=== PATIENT | male | born 1995 | race Hispanic/Latino ===

== ENCOUNTER 2021-02-25 22:38 | Emergency (ER) | payer OTHER, SELFPAY ==
[2021-02-26 00:51] LABS: Absolute Lymphocytes (CBC) 2.4 K/uL (0.7-4.9); Basophils % 0.8 % (0-1.3); Hematocrit 41.1 % (39.6-49.0); MPV 11.8 fL (7.6-11.3); RBC Red Blood Cell Count 4.66 M/uL (4.33-5.43)
[2021-02-26 00:52] LABS: Urine Blood Negative (Negative); Urine Glucose Negative (Negative); Urine Protein Negative (Negative); Urine Specific Gravity 1.015 (1.005-1.030); Urine pH 5.5 (5.0-7.0)
[2021-02-26 00:54] LABS: Protime INR 1.26
[2021-02-26] MEDS ORDERED: LORazepam 2 MG/ML VIAL ONE (00:56)
[2021-02-26] MEDS ORDERED: NA CHLORIDE 0.9% 1,000 ML ONE (00:56)
[2021-02-26 01:06] LABS: ALT/SGPT 31 U/L (12-78); AST/SGOT 24 U/L (15-37); Albumin 4.1 g/dL (3.4-5.0); Alkaline Phosphatase 83 U/L (45-117); BUN Blood Urea Nitrogen 30 mg/dL (7-18); Bicarbonate 26 mmol/L (21-32); Bilirubin Direct 0.1 mg/dL (0-0.2); Bilirubin Total 0.3 mg/dL (0.2-1.0); Creatine Phosphokinase 430 U/L (39-308); Glucose Level 143 mg/dL (74-106); Potassium 3.4 mmol/L (3.5-5.1); Protein, Total 7.6 g/dL (6.4-8.2); Sodium Level 137 mmol/L (136-145); Troponin (Emerg Dept Use Only) < 0.02 ng/mL (0.0-0.045)
[2021-02-26 01:36] LABS: Barbiturates NEGATIVE (NEGATIVE); Benzodiazepines NEGATIVE (NEGATIVE); Cocaine NEGATIVE (NEGATIVE); METHAMPHETAM NEGATIVE (NEGATIVE); Methadone NEGATIVE (NEGATIVE); Opiates NEGATIVE (NEGATIVE); Phencyclidine NEGATIVE (NEGATIVE); THC Cannibis POSITIVE (NEGATIVE)
--- NOTE | 2021-02-26 04:20 | ER ---
Nurse's Notes [facility] Name: Richie Chance Jr Age: 25 yrs Sex: Male : 1995 Arrival Date: 02/25/2021 Time: 22:50 Bed 6 Private MD: Diagnosis: Cannabis abuse with intoxication Presentation: 02/25 22:59 Chief complaint: Friend and/or Co-Worker states: he took 2 pieces of edible candy, they rr5 don't know what is in it. may be THC. now is having chest pain and feels like his heartbeat really fast. Coronavirus screen: Client denies travel out of the [place] in the last 14 days. At this time, the client does not indicate any symptoms associated with coronavirus-19. Ebola Screen: Patient negative for fever greater than or equal to 101.5 degrees Fahrenheit, and additional compatible Ebola Virus Disease symptoms Patient denies exposure to infectious person. Patient denies travel to an Ebola-affected area in the 21 days before illness onset. Initial Sepsis Screen: Does the patient meet any 2 criteria? No. Patient's initial sepsis screen is negative. Does the patient have a suspected source of infection? No. Patient's initial sepsis screen is negative. Risk Assessment: Do you want to hurt yourself or someone else? Patient reports no desire to harm self or others. Onset of symptoms was February 25, 2021 at 21:00. 22:59 Method Of Arrival: Ambulatory rr5 22:59 Acuity: LAINEY 2 rr5 Historical: - Allergies: 23:02 No Known Allergies; rr5 - Home Meds: 23:02 None [Active]; rr5 - PMHx: 23:02 None; rr5 - PSHx: 23:02 None; rr5 - Immunization history:: Adult Immunizations unknown. - Social history:: Smoking status: unknown Patient/guardian denies using alcohol, street drugs. Screenin/20 00:15 Abuse screen: Denies threats or abuse. Nutritional screening: No deficits noted. jb4 Tuberculosis screening: No symptoms or risk factors identified. Fall Risk None identified. Assessment: 00:15 General: Appears in no apparent distress. comfortable, Behavior is calm, cooperative, jb4 appropriate for age. Pain: Denies pain. Neuro: Level of Consciousness is awake, alert, obeys commands, Oriented to person, place, time, situation. Cardiovascular: Patient's skin is warm and dry. Respiratory: Airway is patent Respiratory effort is even, unlabored, Respiratory pattern is regular, symmetrical. GI: No signs and/or symptoms were reported involving the gastrointestinal system. : No signs and/or symptoms were reported regarding the genitourinary system. EENT: No signs and/or symptoms were reported regarding the EENT system. Derm: Skin is intact, Skin is pink, warm \T\ dry. Musculoskeletal: Circulation, motion, and sensation intact. Range of motion: intact in all extremities. 01:15 Reassessment: pt is resting in bed with eyes closed, respirations are even and jb4 unlabored with no s/s of pain or distress noted. 02:15 Reassessment: Patient appears in no apparent distress at this time. No changes from jb4 previously documented assessment. Patient and/or family updated on plan of care and expected duration. Pain level reassessed. 03:00 Reassessment: Patient appears in no apparent distress at this time. Patient and/or jb4 family updated on plan of care and expected duration. Pain level reassessed. Patient is alert, oriented x 3, equal unlabored respirations, skin warm/dry/pink. Patient states feeling better. Patient states symptoms have improved. 04:30 Reassessment: Patient appears in no apparent distress at this time. Patient and/or jb4 family updated on plan of care and expected duration. Pain level reassessed. Patient is alert, oriented x 3, equal unlabored respirations, skin warm/dry/pink. Vital Signs: 02/25 22:59 BP 140 / 79; Pulse 133; Resp 24; Temp 97; Pulse Ox 100% ; Weight 88.45 kg; Height 5 ft. rr5 11 in. (180.34 cm); Pain 0/10; 02/26 01:30 BP 138 / 78; Pulse 96; Resp 17; Pulse Ox 99% on R/A; jb4 02:15 BP 127 / 66; Pulse 94; Resp 17; Pulse Ox 99% on R/A; lp1 03:00 BP 126 / 64; Pulse 99; Resp 16; Pulse Ox 100% on R/A; jb4 04:30 BP 128 / 71; Pulse 92; Resp 16; Pulse Ox 100% ; jb4 02/25 22:59 Body Mass Index 27.20 (88.45 kg, 180.34 cm) rr5 ED Course: 02/25 22:50 Patient arrived in ED. am4 23:02 Triage completed. rr5 23:02 Arm band placed on. rr5 23:56 Jamie Benitez MD is Attending Physician. [facility] 02/26 00:13 Loyda Stanley, RN is Primary Nurse. lp1 00:15 Patient has correct armband on for positive identification. Bed in low position. Call jb4 light in reach. Side rails up X 1. Pulse ox on. NIBP on. 00:20 Initial lab(s) drawn, by ar, sent to lab. Inserted saline lock: 18 gauge in right jb4 antecubital area, using aseptic technique. 00:58 Chest Single View XRAY In Process Unspecified. EDMS 02:14 Victor Manuel Monreal, RN is Primary Nurse. jb4 04:30 No provider procedures requiring assistance completed. IV discontinued, intact, jb4 bleeding controlled, No redness/swelling at site. Pressure dressing applied. Administered Medications: 00:45 Drug: NS 0.9% 1000 ml Route: IV; Rate: 1000 ml; Site: right forearm; lp1 00:45 Drug: Ativan (LORazepam) 1 mg Route: IVP; Site: right forearm; lp1 Outcome: 04:20 Discharge ordered by . [facility] 04:30 Discharged to home ambulatory, with friend. jb4 04:30 Condition: stable 04:30 Discharge instructions given to patient, Instructed on discharge instructions, follow up and referral plans. Demonstrated understanding of instructions, follow-up care. 04:44 Patient left the ED. jb4 Signatures: Dispatcher [employer] EDGA Loyda Stanley, RN RN lp1 Victor Maneul Monreal, RN KAMILA jb4 James Pagan RN RN rr5 Jamie Benitez MD MD [facility]
--- NOTE | 2021-02-26 04:20 | EDPHYS ---
Physician Documentation [facility] Name: Richie Chance Jr Age: 25 yrs Sex: Male : 1995 Arrival Date: 02/25/2021 Time: 22:50 Bed 6 Private MD: ED Physician Jamie Benitez HPI: 02/26 00:48 This 25 yrs old Male presents to ER via Ambulatory with complaints of mh7 INGESTION. 00:49 The patient presents to the emergency department with a possible poisoning, marijuana mh7 edibles. Context: Method: the patient has a confirmed or suspected ingestion, THC edibles, Time: today, Extent: marijuana edibles, the OD/poisoning occurred at at home, and was witnessed by a friend, Psychiatric history: none, Previous OD/poisoning history: none. Associated signs and symptoms: Pertinent positives: anxiety, palpitations, Pertinent negatives: apnea, auditory hallucinations, burning of skin, decreased level of consciousness, depression, diaphoresis, diarrhea, dizziness, incontinence, loss of consciousness, nausea, shortness of breath, tearfulness, visual hallucinations, vomiting. Severity of symptoms: At their worst the symptoms were moderate today, in the emergency department the symptoms are unchanged. Historical: - Allergies: 02/25 23:02 No Known Allergies; rr5 - Home Meds: 23:02 None [Active]; rr5 - PMHx: 23:02 None; rr5 - PSHx: 23:02 None; rr5 - Immunization history:: Adult Immunizations unknown. - Social history:: Smoking status: unknown Patient/guardian denies using alcohol, street drugs. ROS: 02/26 00:49 Constitutional: Negative for fever, chills, and weight loss, Eyes: Negative for injury, mh7 pain, redness, and discharge, ENT: Negative for injury, pain, and discharge, Neck: Negative for injury, pain, and swelling, Respiratory: Negative for shortness of breath, cough, wheezing, and pleuritic chest pain, Abdomen/GI: Negative for abdominal pain, nausea, vomiting, diarrhea, and constipation, Back: Negative for injury and pain, : Negative for injury, bleeding, discharge, and swelling, MS/Extremity: Negative for injury and deformity, Skin: Negative for injury, rash, and discoloration, Neuro: Negative for headache, weakness, numbness, tingling, and seizure. Allergy/Immunology: Negative for hives, rash, and allergies, Endocrine: Negative for neck swelling, polydipsia, polyuria, polyphagia, and marked weight changes, Hematologic/Lymphatic: Negative for swollen nodes, abnormal bleeding, and unusual bruising. Psych: Negative for depression, alcohol dependence, auditory hallucinations, visual hallucinations, homicidal ideation, insomnia, suicide gesture, suicidal ideation. Exam: 00:49 Head/Face: Normocephalic, atraumatic. Eyes: Pupils equal round and reactive to light, mh7 extra-ocular motions intact. Lids and lashes normal. Conjunctiva and sclera are non-icteric and not injected. Cornea within normal limits. Periorbital areas with no swelling, redness, or edema. Neck: Trachea midline, no thyromegaly or masses palpated, and no cervical lymphadenopathy. Supple, full range of motion without nuchal rigidity, or vertebral point tenderness. No Meningismus. Chest/axilla: Normal chest wall appearance and motion. Nontender with no deformity. No lesions are appreciated. 00:49 Respiratory: Lungs have equal breath sounds bilaterally, clear to auscultation and percussion. No rales, rhonchi or wheezes noted. No increased work of breathing, no retractions or nasal flaring. Abdomen/GI: Soft, non-tender, with normal bowel sounds. No distension or tympany. No guarding or rebound. No evidence of tenderness throughout. Back: No spinal tenderness. No costovertebral tenderness. Full range of motion. Skin: Warm, dry with normal turgor. Normal color with no rashes, no lesions, and no evidence of cellulitis. MS/ Extremity: Pulses equal, no cyanosis. Neurovascular intact. Full, normal range of motion. Neuro: Awake and alert, GCS 15, oriented to person, place, time, and situation. Cranial nerves II-XII grossly intact. Motor strength 5/5 in all extremities. Sensory grossly intact. Cerebellar exam normal. Normal gait. 00:49 Constitutional: The patient appears in no acute distress, alert, awake, anxious. 00:49 Cardiovascular: Rate: tachycardic, Rhythm: regular, Pulses: no pulse deficits are appreciated, Heart sounds: normal, normal S1and S2, Edema: is not appreciated, JVD: is not appreciated. 00:49 Psych: Behavior/mood is anxious, Oriented to person, place, time, Patient has no thoughts/intents to harm self or others. Judgement / Insight is normal. Memory is normal. Delusions/hallucinations are not present. Vital Signs: 02/25 22:59 BP 140 / 79; Pulse 133; Resp 24; Temp 97; Pulse Ox 100% ; Weight 88.45 kg; Height 5 ft. rr5 11 in. (180.34 cm); Pain 0/10; 02/26 01:30 BP 138 / 78; Pulse 96; Resp 17; Pulse Ox 99% on R/A; jb4 02:15 BP 127 / 66; Pulse 94; Resp 17; Pulse Ox 99% on R/A; lp1 03:00 BP 126 / 64; Pulse 99; Resp 16; Pulse Ox 100% on R/A; jb4 04:30 BP 128 / 71; Pulse 92; Resp 16; Pulse Ox 100% ; jb4 02/25 22:59 Body Mass Index 27.20 (88.45 kg, 180.34 cm) rr5 MDM: 04:18 Differential diagnosis: Ingestion/exposure to Cannabis polypharmacy, hypoglycemia. Data [facility] reviewed: vital signs, nurses notes, lab test result(s), CBC, electrolytes, urinalysis, urine drug screen, EKG, radiologic studies. Data interpreted: Pulse oximetry: on room air is 100 %. Interpretation: normal. Counseling: I had a detailed discussion with the patient and/or guardian regarding: the historical points, exam findings, and any diagnostic results supporting the discharge/admit diagnosis, lab results, radiology results, the need for outpatient follow up, to return to the emergency department if symptoms worsen or persist or if there are any questions or concerns that arise at home. Response to treatment: the patient's symptoms have resolved after treatment, the patient's blood pressure is in an acceptable range, mental status has returned to baseline, the patient no longer shows bradycardia, the patient is not short of breath, the patient is not tachycardic, the patient's pain is gone, the patient's temperature has normalized. 04:20 Patient medically screened. [facility] 02/26 00:11 Order name: Acetaminophen [facility] 02/26 00:11 Order name: Basic Metabolic Panel [facility] 02/26 00:11 Order name: CBC with Diff [facility] 02/26 00:11 Order name: ETOH Level; Complete Time: 02:19 7 02/26 00:11 Order name: Hepatic Function; Complete Time: 02:19 7 02/26 00:11 Order name: PT-INR; Complete Time: 02:19 7 02/26 00:11 Order name: Ptt, Activated; Complete Time: 02:19 7 02/26 00:11 Order name: Salicylate; Complete Time: 02:19 7 02/26 00:11 Order name: Urine Drug Screen; Complete Time: 02:19 7 02/26 00:11 Order name: Troponin (emerg Dept Use Only); Complete Time: 02:19 7 02/26 00:11 Order name: CPK; Complete Time: 02:19 7 02/26 00:11 Order name: Acetaminophen Level; Complete Time: 02:19 EDMS 02/26 00:11 Order name: Basic Metabolic Panel; Complete Time: 02:19 EDMS 02/26 00:11 Order name: CBC with Automated Diff; Complete Time: 02:19 EDMS 02/26 00:11 Order name: EKG; Complete Time: 00:12 02/26 00:11 Order name: EKG - Nurse/Tech; Complete Time: 00:52 02/26 00:11 Order name: IV Saline Lock; Complete Time: 00:52 [facility] 02/26 00:11 Order name: Labs collected and sent; Complete Time: 00:52 02/26 00:11 Order name: Suicide Screening ([place]); Complete Time: 00:52 [facility] 02/26 00:11 Order name: Urine Dipstick-Ancillary (obtain specimen); Complete Time: 00:52 02/26 00:11 Order name: Chest Single View XRAY [facility] 02/26 00:52 Order name: Urine Dipstick-Ancillary; Complete Time: 02:19 EDMS Administered Medications: 00:45 Drug: NS 0.9% 1000 ml Route: IV; Rate: 1000 ml; Site: right forearm; lp1 00:45 Drug: Ativan (LORazepam) 1 mg Route: IVP; Site: right forearm; lp1 Disposition: 02/26/21 04:20 Discharged to Home. Impression: Cannabis abuse with intoxication. - Condition is Stable. - Discharge Instructions: Cannabis Use Disorder. - Medication Reconciliation Form, Thank You Letter, Antibiotic Education, Prescription Opioid Use form. - Follow up: Private Physician; When: 1 - 2 days; Reason: Worsening of condition, Recheck today's complaints, Continuance of care, Re-evaluation by your physician. - Problem is new. - Symptoms are resolved. Signatures: Dispatcher [employer] EDMS Loyda Stanley RN RN lp1 Victor Manuel Monreal RN RN jb4 James Pagan RN RN rr5 Jamie Benitez MD MD mh7 Corrections: (The following items were deleted from the chart) 00:52 00:48 The patient presents to the emergency department 7 mh7 04:44 04:20 02/26/2021 04:20 Discharged to Home. Impression: Cannabis abuse with jb4 intoxication. Condition is Stable. Forms are Medication Reconciliation Form, Thank You Letter, Antibiotic Education, Prescription Opioid Use. Follow up: Private Physician; When: 1 - 2 days; Reason: Worsening of condition, Recheck today's complaints, Continuance of care, Re-evaluation by your physician. Problem is new. Symptoms are resolved. mh7
[2021-02-26 05:04] VITALS: TEMP 97
[2021-02-26 05:09] VITALS: BP 126/64; O2SAT 100
--- NOTE | 2021-02-26 08:57 | RAD REPORT ---
EXAM DESCRIPTION: RAD - Chest Single View - 02/26/2021 12:58 am CLINICAL HISTORY: CHEST PAIN COMPARISON: None TECHNIQUE: AP portable chest image was obtained 02/26/2021 12:58 am . FINDINGS: Lungs are clear. Heart and vasculature are normal. No measurable pleural effusion and no p neumothorax. No acute bony abnormality seen. No acute aortic findings suspected. IMPRESSION: No acute cardiopulmonary process.
--- NOTE | 2021-02-27 08:25 | EKG ---
Test Date: 2021-02-26 Test Time: 00:40:26 Prepress Proofer: IMTIAZ MEASUREMENT RESULTS: Intervals: Rate: 93 NC: 162 QRSD: 88 QT: 342 QTc: 425 [place]: P: 73 NC: 162 QRS: 75 T: 50 INTERPRETIVE STATEMENTS: Normal sinus rhythm Normal ECG No previous ECG available for comparison Electronically Signed On 02-27-21 08:24:00 CDT by Dano Yeboah
== END 2021-02-26 04:44 | disposition home or self-care (01) ==
LOC: ER 22:38
DX: F12.129 Cannabis abuse with intoxication, unspecified (principal)
CPT/HCPCS: 36415; 71045; 80048; 80076; 80307; 80320; 80329; 81003; 82550; 84484; 85025; 85610; 85730; 93005; 96374; 99284; J7030